=== PATIENT | female | born 1975 | race Caucasian/White ===

== ENCOUNTER 2025-04-25 08:23 | Day surgery (SDC) | payer OTHER ==
[~2025-04-25] VITALS: Ht 160 cm; Wt 70.3 kg
== END 2025-04-25 10:53 | disposition home or self-care (01) ==
LOC: ORSCSDS 08:23
PROVIDERS: Surgery
PROC: 0DBN8ZX Excision of Sigmoid Colon, Via Natural or Artificial Opening Endoscopic, Diagnostic (ICD-10-PCS; principal; 2025-04-25 10:00)
DX: Z12.11 Encounter for screening for malignant neoplasm of colon (principal); K63.5 Polyp of colon; E05.00 Thyrotoxicosis with diffuse goiter without thyrotoxic crisis or storm; Z79.899 Other long term (current) drug therapy
CPT/HCPCS: 88305; J2704; J7120